=== PATIENT | female | born 1950 | race Hispanic/Latino ===

== ENCOUNTER 2022-12-17 13:26 | Emergency (ER) | payer MEDICAID, SELFPAY ==
[~2022-12-17 13:26] MED LIST: Iopamidol 370 76% 100 ML VIAL ONE
[2022-12-17] MEDS ORDERED: cefTRIAXone (ROCEPHIN) 1 GM VIAL ONE (13:53)
[2022-12-17] MEDS ORDERED: Sodium Chloride 0.9% 100 ML ONE (13:53)
[2022-12-17] MEDS ORDERED: Sodium Chloride 0.9% 500 ML ONE ×5 (13:53→17:41)
[2022-12-17 14:13] LABS: Base Excess-Venous -3.1 mmol/L (-2.0 to 3.0); Bicarbonate (HCO3v) 19.6 mmol/L (22.0-28.0); CO2 Tension (PvCO2) 28.6 mmHg (42.0-51.0); Calcium, Ionized 1.07 mmol/L (1.15-1.33); Chloride 102 mmol/L (98-107); Sodium 135 mmol/L (138-145); T. Carbon Dioxide 20.5 mmol/L (22.0-28.0); vO2 Saturation-calc 96.3 % (60.0-85.0)
[2022-12-17 14:21] LABS: ALT (SGPT) 26 U/L (8-55); AST (SGOT) 26 U/L (5-34); Albumin 3.1 g/dL (3.4-4.8); Alkaline Phosphatase 82 U/L (40-110); Anion Gap 17 mmol/L (10-20); BUN (Urea Nitrogen) 23 mg/dL (9.8-20.1); Bilirubin, Total 0.6 mg/dL (0.2-1.2); Calc. Creatinine Clearance 0 mL/min (70-130); Calcium 8.6 mg/dL (7.8-10.44); Carbon Dioxide 18 mmol/L (23-31); Chloride 102 mmol/L (98-107); Estimated GFR 35; Glucose 149 mg/dL (83-110); Protein, Total 6.1 g/dL (5.8-8.1); Sodium 133 mmol/L (136-145)
[2022-12-17 14:24] LABS: Band 19 % (5-11); Hemoglobin 12.9 g/dL (12.0-16.0); Lymphocytes 3 % (21-51); MDiff Complete? YES; Mean Corpuscular HGB CONC 31.6 g/dL (32.0-36.0); Mean Corpuscular Hemoglobin 26.2 pg (27.0-31.0); Mean Platelet Volume 7.3 fL (7.4-10.4); Monocytes 1 % (0-10); Neutrophil 77 % (42-75); Platelet Adequacy Comment Appears Adequate; Platelet Count 183 10x3/uL (130-400); RBC Distribution Width 14.2 % (11.5-14.5); Red Blood Cell (RBC) Count 4.91 mill/uL (4.20-5.40); White Blood Cell (WBC) Count 20.2 10x3/uL (4.8-10.8)
[2022-12-17 14:43] LABS: SARS-CoV-2 NAA Rapid Test Not Detected (NotDetected)
[2022-12-17] MEDS ORDERED: Azithromycin 500 MG VIAL ONE (14:45)
[2022-12-17 16:11] LABS: Bilirubin Negative (Negative); Blood, Urine Negative (Negative); Clarity Clear (Clear); Glucose, Urine (Dipstick) Negative (Negative); Ketone, Urine Trace mg/dL (Negative); Leukocyte Negative (Negative); Nitrite Negative (Negative); Protein, Urine (Dipstick) 30 mg/dL (Neg-Trace); Specific Gravity, Urine 1.015 (1.005-1.030); Urobilinogen 0.2 mg/dL (Less than 2)
[2022-12-17 16:13] LABS: CAUTI Indications for Culture Acute Hematuria; Squamous Epithelial 0-3 HPF (0-3); WBC/HPF 0-3 HPF (0-3)
[2022-12-17 16:15] LABS: Urine Culture Reflex No No
[2022-12-17] MEDS ORDERED: Sodium Chloride 0.9% 1,000 ML ONE ×2 (16:24→17:34)
[2022-12-17 16:58] LABS: Lactic Acid 2.7 mmol/L (0.5-2.2)
[2022-12-17] MEDS ORDERED: Norepinephrine 4 MG/4 ML VIAL ONE ×2 (18:21→18:52)
[2022-12-17] MEDS ORDERED: Dextrose 5% in Water 250 ML ONE (18:21)
== END 2022-12-17 18:46 | disposition short-term general hospital (02) ==
LOC: NAV ERS 13:26
DX: J18.9 Pneumonia, unspecified organism (principal); I95.9 Hypotension, unspecified; A41.9 Sepsis, unspecified organism; D72.829 Elevated white blood cell count, unspecified; E78.00 Pure hypercholesterolemia, unspecified
CPT/HCPCS: 71045; 71270; 80053; 81001; 82330; 82803; 83605; 84484; 85025; 87040; 87070; 87205; 96361; 96365; 96367; J0456; J0696; J3490; J7030; J7050; J7070; Q9967

== ENCOUNTER 2024-04-24 17:37 | Emergency (ER) | payer MEDICAID, SELFPAY ==
[2024-04-24] MEDS ORDERED: Ipratropium/Albuterol 3 ML NEB ONE (18:00)
[2024-04-24] MEDS ORDERED: Racepinephrine 2.25% 0.5 ML NEB ONE (18:00)
[2024-04-24 18:46] LABS: #Basophils 0.1 thou/uL (0.0-0.2); #Eosinophils 0.2 thou/uL (0.0-0.7); #Lymphocytes 1.4 thou/uL (1.20-3.40); #Monocytes 0.7 thou/uL (0.11-0.59); %Basophils 0.8 % (0.0-1.0); %Eosinophils 1.8 % (0.0-10.0); %Lymphocytes 14.8 % (21.0-51.0); %Monocytes 7.4 % (0.0-10.0); %Neutrophils 75.2 % (42.0-75.0); Hematocrit 48.1 % (36.0-47.0); Mean Corpuscular HGB CONC 31.2 g/dL (32.0-36.0); Mean Corpuscular Hemoglobin 24.8 pg (27.0-31.0); Mean Corpuscular Volume 79.3 fl (78.0-98.0); Mean Platelet Volume 7.7 fL (7.4-10.4); Platelet Count 216 10x3/uL (130-400); RBC Distribution Width 14.9 % (11.5-14.5); Red Blood Cell (RBC) Count 6.06 mill/uL (4.20-5.40); White Blood Cell (WBC) Count 9.3 10x3/uL (4.8-10.8)
[2024-04-24 18:52] LABS: Anion Gap 14 mmol/L (10-20); BUN (Urea Nitrogen) 13 mg/dL (9.8-20.1); Calc. Creatinine Clearance 0 mL/min (70-130); Calcium 9.3 mg/dL (7.8-10.44); Carbon Dioxide 23 mmol/L (23-31); Chloride 104 mmol/L (98-107); Estimated GFR 64; Glucose 99 mg/dL (83-110); Sodium 137 mmol/L (136-145)
[2024-04-24 18:56] LABS: Troponin I 0.016 ng/mL (< 0.028)
[2024-04-24] MEDS ORDERED: Ketorolac Tromethamine 30 MG (1 mL) VIAL ONE (19:20)
[2024-04-24] MEDS ORDERED: cefTRIAXone (ROCEPHIN) 1 GM VIAL ONE (19:20)
[2024-04-24] MEDS ORDERED: Azithromycin 500 MG VIAL ONE (19:21)
[2024-04-24] MEDS ORDERED: Sodium Chloride 0.9% 250 ML 500 ML ONE (19:21)
[2024-04-24] MEDS ORDERED: Sodium Chloride 0.9% 100 ML ONE (19:21)
[2024-04-24] MEDS ORDERED: Guaifenesin DM 100-10/5 ML UDCUP ONE (19:30)
== END 2024-04-24 21:30 | disposition short-term general hospital (02) ==
LOC: NAV ERS 17:37
DX: J18.9 Pneumonia, unspecified organism (principal); R09.02 Hypoxemia
CPT/HCPCS: 71045; 71275; 80048; 84484; 85025; 87428; 93005; 96374; 96375; J0456; J0696; J1885; J7050; J7620; Q9967